=== PATIENT | male | born 1970 | race Native Hawaiian/Other Pacific Islander ===

== ENCOUNTER 2019-07-12 08:20 | Outpatient (CLI) | payer OTHER ==
[2019-07-12 09:04] LABS: PLATELET COUNT 276 K/uL (142-355)
== END 2019-07-12 21:56 | disposition home or self-care (01) ==
LOC: LAB 08:20 → MRI 08:20
PROVIDERS: Otolaryngology
DX: H91.8X1 Other specified hearing loss, right ear (principal); E34.9 Endocrine disorder, unspecified; R73.03 Prediabetes
CPT/HCPCS: 36415; 82565; 82670; 84153; 84403; 84520; 85027; A9576

== ENCOUNTER 2021-10-02 16:29 | Outpatient (CLI) | payer OTHER ==
[2021-10-02 17:03] LABS: PLATELET COUNT 300 K/uL (142-355)
[2021-10-02 17:17] LABS: POTASSIUM 4.5 mmol/L (3.6-5.2)
== END 2021-10-02 18:55 | disposition home or self-care (01) ==
LOC: LAB 16:29
PROVIDERS: ATTEND Nurse Practitioner Family
DX: F41.9 Anxiety disorder, unspecified (principal); I10 Essential (primary) hypertension; C61 Malignant neoplasm of prostate; R97.20 Elevated prostate specific antigen [PSA]; R73.09 Other abnormal glucose; M54.30 Sciatica, unspecified side; E78.2 Mixed hyperlipidemia; E55.9 Vitamin D deficiency, unspecified; M19.90 Unspecified osteoarthritis, unspecified site; Z79.899 Other long term (current) drug therapy; R68.89 Other general symptoms and signs
CPT/HCPCS: 80053; 80061; 82306; 82607; 83036; 84153; 84439; 84443; 85027

== ENCOUNTER 2022-01-13 14:00 | Outpatient (CLI) | payer OTHER ==
[2022-01-13 14:29] LABS: PLATELET COUNT 288 K/uL (142-355)
[2022-01-13 14:46] LABS: POTASSIUM 4.7 mmol/L (3.6-5.2)
== END 2022-01-13 18:56 | disposition home or self-care (01) ==
LOC: LAB 14:00
PROVIDERS: ATTEND Nurse Practitioner Family
DX: F41.9 Anxiety disorder, unspecified (principal); I10 Essential (primary) hypertension; C61 Malignant neoplasm of prostate; M19.90 Unspecified osteoarthritis, unspecified site; E78.2 Mixed hyperlipidemia; E55.9 Vitamin D deficiency, unspecified; I25.10 Atherosclerotic heart disease of native coronary artery without angina pectoris; M54.30 Sciatica, unspecified side; R73.9 Hyperglycemia, unspecified; F32.9 Major depressive disorder, single episode, unspecified; E34.9 Endocrine disorder, unspecified; Z79.899 Other long term (current) drug therapy
CPT/HCPCS: 80053; 80061; 82306; 82607; 83036; 84439; 84443; 85027

== ENCOUNTER → 2022-03-25 | Outpatient (CLI) | payer OTHER | LOC: LAB 14:11 | PROVIDERS: ATTEND Nurse Practitioner Family | DX: C61 Malignant neoplasm of prostate (principal) | CPT/HCPCS: 84153 ==

== ENCOUNTER 2022-04-15 16:08 | Outpatient (CLI) | payer OTHER ==
[2022-04-15 16:26] LABS: PLATELET COUNT 281 K/uL (142-355)
[2022-04-15 16:49] LABS: POTASSIUM 5.1 mmol/L (3.6-5.2)
== END 2022-04-15 20:19 | disposition home or self-care (01) ==
LOC: LAB 16:08
PROVIDERS: ATTEND Nurse Practitioner Family
DX: F41.9 Anxiety disorder, unspecified (principal); I10 Essential (primary) hypertension; C61 Malignant neoplasm of prostate; M54.30 Sciatica, unspecified side; E55.9 Vitamin D deficiency, unspecified; E78.2 Mixed hyperlipidemia; M19.90 Unspecified osteoarthritis, unspecified site; E34.9 Endocrine disorder, unspecified; E88.81 Metabolic syndrome and other insulin resistance; I25.10 Atherosclerotic heart disease of native coronary artery without angina pectoris; R73.9 Hyperglycemia, unspecified; Z79.899 Other long term (current) drug therapy
CPT/HCPCS: 80053; 80061; 82306; 83036; 84402; 84403; 84439; 84443; 85027

== ENCOUNTER 2022-07-17 15:02 | Outpatient (CLI) | payer OTHER ==
[2022-07-17 15:32] LABS: PLATELET COUNT 263 K/uL (142-355)
[2022-07-17 16:12] LABS: POTASSIUM 4.4 mmol/L (3.6-5.2)
== END 2022-07-17 22:30 | disposition home or self-care (01) ==
LOC: LAB 15:02
PROVIDERS: ATTEND Nurse Practitioner Family
DX: F41.8 Other specified anxiety disorders (principal); I10 Essential (primary) hypertension; C61 Malignant neoplasm of prostate; M19.90 Unspecified osteoarthritis, unspecified site; R73.09 Other abnormal glucose; E55.9 Vitamin D deficiency, unspecified; E78.2 Mixed hyperlipidemia; I25.10 Atherosclerotic heart disease of native coronary artery without angina pectoris; R97.20 Elevated prostate specific antigen [PSA]; Z79.899 Other long term (current) drug therapy; E34.8 Other specified endocrine disorders; E66.9 Obesity, unspecified
CPT/HCPCS: 80053; 80061; 82306; 83036; 84153; 84439; 84443; 85027

== ENCOUNTER 2022-10-01 13:54 | Outpatient (CLI) | payer OTHER | END 2022-10-01 19:00 | disposition home or self-care (01) | LOC: LAB 13:54 | PROVIDERS: ATTEND Nurse Practitioner Family | DX: C61 Malignant neoplasm of prostate (principal) | CPT/HCPCS: 84153 ==

== ENCOUNTER 2022-10-29 14:17 | Outpatient (CLI) | payer OTHER ==
[2022-10-29 14:33] LABS: PLATELET COUNT 273 K/uL (142-355)
[2022-10-29 14:57] LABS: POTASSIUM 4.3 mmol/L (3.6-5.2)
== END 2022-10-29 19:22 | disposition home or self-care (01) ==
LOC: LAB 14:17
PROVIDERS: ATTEND Nurse Practitioner Family
DX: F41.8 Other specified anxiety disorders (principal); I10 Essential (primary) hypertension; C61 Malignant neoplasm of prostate; M19.90 Unspecified osteoarthritis, unspecified site; R73.09 Other abnormal glucose; E78.2 Mixed hyperlipidemia; E55.9 Vitamin D deficiency, unspecified; I25.10 Atherosclerotic heart disease of native coronary artery without angina pectoris; Z79.899 Other long term (current) drug therapy
CPT/HCPCS: 36415; 80053; 80061; 82306; 83036; 84402; 84403; 84439; 84443; 85027

== ENCOUNTER 2023-01-29 13:21 | Outpatient (CLI) | payer OTHER ==
[2023-01-29 13:38] LABS: PLATELET COUNT 284 K/uL (142-355)
[2023-01-29 13:57] LABS: POTASSIUM 4.7 mmol/L (3.6-5.2)
== END 2023-01-29 19:30 | disposition home or self-care (01) ==
LOC: LAB 13:21
PROVIDERS: ATTEND Nurse Practitioner Family
DX: F41.9 Anxiety disorder, unspecified (principal); I10 Essential (primary) hypertension; C61 Malignant neoplasm of prostate; M19.90 Unspecified osteoarthritis, unspecified site; R73.09 Other abnormal glucose; E78.2 Mixed hyperlipidemia; E55.9 Vitamin D deficiency, unspecified; I25.10 Atherosclerotic heart disease of native coronary artery without angina pectoris; Z79.899 Other long term (current) drug therapy
CPT/HCPCS: 80053; 80061; 82150; 82306; 83036; 83690; 84153; 84402; 84403; 84439; 84443; 85027